=== PATIENT | female | born 1960 | race Caucasian/White ===

== ENCOUNTER → 2019-03-30 | Outpatient (CLI) | payer OTHER ==
[~2019-03-30] MED LIST: ALBU90OI; ALBU90OI INH; ATOR40TA PO; Aspir 8181 MG PO; ESCI20 PO; GUAI600T33 PO; Humulin N100 UNIT/1 SC; LEVO750 PO; Lisinopril2.5 MG; Lisinopril2.5 MG PO; TRAZ100 PO; VSL; Ventolin/Prove6.7 GM INH
== END | disposition home or self-care (01) ==
LOC: LAB SHORT 12:39 → PLD 12:39
DX: C44.311 Basal cell carcinoma of skin of nose (principal)
CPT/HCPCS: 88305

== ENCOUNTER → 2019-12-25 | Outpatient (CLI) | payer OTHER | LOC: LAB SHORT 15:49 → LAB 15:49 | DX: N39.0 Urinary tract infection, site not specified (principal) | CPT/HCPCS: 87077; 87086; 87186 ==

== ENCOUNTER 2020-03-08 19:06 | Observation (INO) | payer OTHER ==
[~2020-03-08] VITALS: Ht 175.3 cm; Wt 132.4 kg
[~2020-03-08 19:06] MED LIST changes: -Lisinopril2.5 MG
[2020-03-08 19:59] LABS: Source, Urine Clean Catch
[2020-03-08 20:05] LABS: Appearance, Urine Clear (Clear); Bilirubin, Urine Neg (Neg); Blood, Urine Neg (Neg); Color, Urine Yellow (P-Yellow); Glucose Qualitative, Urine Neg (Neg); Ketones, Urine Neg (Neg); Leukocyte Esterase, Urine Neg (Neg); Nitrite, Urine Neg (Neg); Protein, Urine Neg (Neg); Urobilinogen, Urine NORM (Normal)
[2020-03-08] MEDS ORDERED: SALM50IP INH (20:06)
[2020-03-08] MEDS ORDERED: HUMULIN N100 UNIT/6 SC (20:07)
[2020-03-08] MEDS ORDERED: MONT10T PO (20:07)
[2020-03-08] MEDS ORDERED: ATORVASTATIN CA40 M1 PO (20:08)
[2020-03-08 20:28] LABS: U Amphetamine Screen Not Detected; U Barbituate Screen Not Detected; U Benzodiazapine Screen Not Detected; U Buprenorphine Screen Not Detected; U Cannabinoids Screen Not Detected; U Cocaine Screen Not Detected; U Methadone Screen Not Detected; U Methamphetamine Screen Not Detected; U Opiates Screen Not Detected; U Oxycodone Screen Not Detected; U Phencyclidine Screen Not Detected; U Propoxyphene Screen Not Detected
[2020-03-08 20:37] LABS: BASOPHILS ABSOLUTE AUTO 0.11 K/mm3 (0.00-0.23); BASOPHILS PERCENT AUTO 1 % (0-2); EOSINOPHILS ABSOLUTE AUTO 0.65 K/mm3 (0.00-0.68); EOSINOPHILS PERCENT AUTO 6 % (0-6); Hematocrit 44.1 % (33.0-51.0); Hemoglobin 14.6 g/dL (11.5-16.0); IMMATURE GRAN ABSOLUTE AUTO 0.07 K/mm3 (0.00-0.10); IMMATURE GRAN PERCENT AUTO 1 % (0-1); LYMPHOCYTES ABSOLUTE AUTO 3.48 K/mm3 (0.84-5.20); LYMPHOCYTES PERCENT AUTO 30 % (21-46); MONOCYTES ABSOLUTE AUTO 0.79 K/mm3 (0.16-1.47); MONOCYTES PERCENT AUTO 7 % (4-13); Mean Corpuscular HGB 31.7 pg (26.0-34.0); Mean Corpuscular HGB Conc 33.1 g/dL (31.5-36.5); Mean Corpuscular Volume 96 fL (80-100); Mean Platelet Volume 9.9 fL (9.1-12.4); NEUTROPHILS ABSOLUTE AUTO 6.56 K/mm3 (1.96-9.15); NEUTROPHILS PERCENT AUTO 56 % (41-73); Platelet Count 344 K/mm3 (150-400); RDW Coefficient Variation 12.5 % (11.7-14.2); RDW Standard Deviation 44.1 fL (35.1-46.3); Red Blood Cell Count 4.61 M/mm3 (3.80-5.20); White Blood Cell Count 11.66 K/mm3 (4.00-11.30)
[2020-03-08 21:00] LABS: Alanine Aminotransfer (ALT/SGP 33 U/L (12-78); Albumin, Blood 3.5 g/dL (3.4-5.0); Albumin/Globulin Ratio 0.8 (0.8-1.8); Alk Phos 76 U/L (50-136); Anion Gap 10 mmol/L (6-16); Aspartate Aminotrans (AST/SGOT 19 U/L (12-37); Bilirubin, Total 0.2 mg/dL (0.1-1.0); Blood Urea Nitrogen 11 mg/dL (8-24); Bun/Creatinine Ratio 17.8 (12.0-20.0); CO2, Blood 21 mmol/L (21-32); Calcium, Blood 9.3 mg/dL (8.5-10.1); Chloride, Blood 105 mmol/L (98-108); Creatinine, Blood 0.62 mg/dL (0.40-1.00); Ethanol (Alcohol), Blood, Med 66 mg/dL; Globulin, Blood 4.3 g/dL (2.2-4.0); Glomerular Filtration Rate >60 (60-); Glucose, Blood 222 mg/dL (70-99); Potassium, Blood 3.5 mmol/L (3.5-5.5); Salicylate 2.3 mg/dL (2.8-20.0); Sodium, Blood 136 mmol/L (136-145); Total Protein, Blood 7.8 g/dL (6.4-8.2)
[2020-03-08 21:04] LABS: Acetaminophen, Random <2.0 ug/mL (10.0-30.0)
[2020-03-09] MEDS ORDERED: BASAGLAR K100 UNIT/1 SC (08:07)
== END 2020-03-09 09:25 | disposition home or self-care (01) ==
LOC: ER 19:06 → EOR 19:07
PROVIDERS: Physician Assistant; ADMIT Emergency Medicine
DX: F32.9 Major depressive disorder, single episode, unspecified (principal); R45.851 Suicidal ideations; F41.9 Anxiety disorder, unspecified; I25.10 Atherosclerotic heart disease of native coronary artery without angina pectoris; I25.2 Old myocardial infarction; E11.9 Type 2 diabetes mellitus without complications; J45.20 Mild intermittent asthma, uncomplicated; I10 Essential (primary) hypertension; G47.33 Obstructive sleep apnea (adult) (pediatric); E78.5 Hyperlipidemia, unspecified; G47.00 Insomnia, unspecified; Z88.1 Allergy status to other antibiotic agents; Z88.2 Allergy status to sulfonamides; Z79.51 Long term (current) use of inhaled steroids; Z79.4 Long term (current) use of insulin; Z79.899 Other long term (current) drug therapy; Z95.5 Presence of coronary angioplasty implant and graft; Z93.3 Colostomy status; Z87.891 Personal history of nicotine dependence
CPT/HCPCS: 36415; 80053; 81003; 81025; 82947; 85025; 93005; 93010; 99285-25; G0378; G0480; J1815

== ENCOUNTER 2020-08-09 09:02 | Emergency (ER) | payer OTHER ==
[~2020-08-09] VITALS: Ht 175.3 cm; Wt 127.0 kg
[~2020-08-09 09:02] MED LIST changes: +ATORVASTATIN CA40 M1 PO; +BASAGLAR K100 UNIT/1 SC; +HUMULIN N100 UNIT/6 SC; +MONT10T PO; +SALM50IP INH
[2020-08-09] MEDS ORDERED: OXYC5 PO (11:44)
[2020-08-11] MEDS ORDERED: Norco 5-325 Ta1 EACH PO (09:49)
== END 2020-08-09 12:25 | disposition home or self-care (01) ==
LOC: ER 09:02
DX: M54.2 Cervicalgia (principal); I25.10 Atherosclerotic heart disease of native coronary artery without angina pectoris; I25.2 Old myocardial infarction; E11.9 Type 2 diabetes mellitus without complications; E78.5 Hyperlipidemia, unspecified; Z87.891 Personal history of nicotine dependence
CPT/HCPCS: 72125; 96372; 99283-25; J1885

== ENCOUNTER 2021-02-17 14:43 | Observation (INO) | payer OTHER ==
[~2021-02-17] VITALS: Ht 177.8 cm; Wt 127.0 kg
[~2021-02-17 14:43] MED LIST changes: +Norco 5-325 Ta1 EACH PO; +OXYC5 PO
[2021-02-17 15:52] LABS: BASOPHILS ABSOLUTE AUTO 0.14 K/mm3 (0.00-0.23); BASOPHILS PERCENT AUTO 1 % (0-2); EOSINOPHILS ABSOLUTE AUTO 0.37 K/mm3 (0.00-0.68); EOSINOPHILS PERCENT AUTO 3 % (0-6); Hematocrit 46.4 % (33.0-51.0); Hemoglobin 15.5 g/dL (11.5-16.0); IMMATURE GRAN ABSOLUTE AUTO 0.07 K/mm3 (0.00-0.10); IMMATURE GRAN PERCENT AUTO 1 % (0-1); LYMPHOCYTES ABSOLUTE AUTO 3.87 K/mm3 (0.84-5.20); LYMPHOCYTES PERCENT AUTO 28 % (21-46); MONOCYTES ABSOLUTE AUTO 0.84 K/mm3 (0.16-1.47); MONOCYTES PERCENT AUTO 6 % (4-13); Mean Corpuscular HGB 31.8 pg (26.0-34.0); Mean Corpuscular HGB Conc 33.4 g/dL (31.5-36.5); Mean Corpuscular Volume 95 fL (80-100); Mean Platelet Volume 9.6 fL (9.1-12.4); NEUTROPHILS ABSOLUTE AUTO 8.77 K/mm3 (1.96-9.15); NEUTROPHILS PERCENT AUTO 62 % (41-73); Platelet Count 400 K/mm3 (150-400); RDW Coefficient Variation 13.1 % (11.7-14.2); RDW Standard Deviation 46.3 fL (35.1-46.3); Red Blood Cell Count 4.88 M/mm3 (3.80-5.20); White Blood Cell Count 14.06 K/mm3 (4.00-11.30)
[2021-02-17 16:21] LABS: Influenza A, PCR NEGATIVE (NEGATIVE); Influenza B, PCR NEGATIVE (NEGATIVE); Resp Syncytial Virus, PCR NEGATIVE (NEGATIVE); SARS-Cov-2 (COVID-19) PCR, MMC NEGATIVE (NEGATIVE)
[2021-02-17 16:24] LABS: Alanine Aminotransfer (ALT/SGP 33 U/L (12-78); Albumin, Blood 3.8 g/dL (3.4-5.0); Alk Phos 76 U/L (50-136); Anion Gap 6 mmol/L (6-16); Aspartate Aminotrans (AST/SGOT 18 U/L (12-37); Bilirubin, Total 0.3 mg/dL (0.1-1.0); Blood Urea Nitrogen 11 mg/dL (8-24); Bun/Creatinine Ratio 15.7 (12.0-20.0); CO2, Blood 28 mmol/L (21-32); Calcium, Blood 9.6 mg/dL (8.5-10.1); Chloride, Blood 106 mmol/L (98-108); Ethanol (Alcohol), Blood, Med 3 mg/dL; Globulin, Blood 3.8 g/dL (2.2-4.0); Glomerular Filtration Rate >60 (60-); Glucose, Blood 91 mg/dL (70-99); Potassium, Blood 3.9 mmol/L (3.5-5.5); Salicylate 3.6 mg/dL (2.8-20.0); Sodium, Blood 140 mmol/L (136-145); Total Protein, Blood 7.6 g/dL (6.4-8.2)
[2021-02-17 16:28] LABS: Acetaminophen, Random <2.0 ug/mL (10.0-30.0)
[2021-02-17 17:09] LABS: Source, Urine Clean Catch
[2021-02-17 17:34] LABS: U Amphetamine Screen Not Detected; U Barbituate Screen Not Detected; U Benzodiazapine Screen Not Detected; U Buprenorphine Screen Not Detected; U Cannabinoids Screen DETECTED; U Cocaine Screen Not Detected; U Methadone Screen Not Detected; U Methamphetamine Screen Not Detected; U Opiates Screen Not Detected; U Oxycodone Screen Not Detected; U Phencyclidine Screen Not Detected; U Propoxyphene Screen Not Detected
[2021-02-17 17:40] LABS: Appearance, Urine Clear (Clear); Blood, Urine 2+ (Neg); Color, Urine Yellow (P-Yellow); Glucose Qualitative, Urine Neg (Neg); Ketones, Urine Neg (Neg); Leukocyte Esterase, Urine 1+ (Neg); Nitrite, Urine Pos (Neg); Protein, Urine 2+ (Neg); Urobilinogen, Urine 4+ (Normal)
[2021-02-17 17:58] LABS: Bacteria Few /hpf; Mucus Light (0-Heavy); Squamous Epithelial Cells Few /hpf (Few); Trichomonas Few /hpf
[2021-02-17] MEDS ORDERED: TRULICITY0.75 MG/01 (18:23)
[2021-02-17] MEDS ORDERED: NEURONTIN300 MG PO ×2 (18:23→18:25)
[2021-02-17] MEDS ORDERED: ESCI20 (18:24)
[2021-02-17] MEDS ORDERED: CYCL10 PO (18:24)
[2021-02-17] MEDS ORDERED: ASPI81CH PO (18:28)
[2021-02-17 19:10] LABS: Bilirubin, Urine 2+ (Neg)
[2021-02-18] MEDS ORDERED: CLON.5 PO (12:18)
== END 2021-02-18 15:07 | disposition home or self-care (01) ==
LOC: ER 14:43 → EOR 14:44
PROVIDERS: Physician Assistant; ADMIT Emergency Medicine
DX: F32.2 Major depressive disorder, single episode, severe without psychotic features (principal); I25.10 Atherosclerotic heart disease of native coronary artery without angina pectoris; I25.2 Old myocardial infarction; E11.9 Type 2 diabetes mellitus without complications; J45.20 Mild intermittent asthma, uncomplicated; I10 Essential (primary) hypertension; G47.33 Obstructive sleep apnea (adult) (pediatric); E78.5 Hyperlipidemia, unspecified; Z79.4 Long term (current) use of insulin; Z95.5 Presence of coronary angioplasty implant and graft; Z88.2 Allergy status to sulfonamides; Z20.822 Contact with and (suspected) exposure to COVID-19; Z87.891 Personal history of nicotine dependence; Z91.51 Personal history of suicidal behavior
CPT/HCPCS: 0241U; 80053; 81001; 81025; 82947; 85025; 87086; 99285; A9270; G0378; G0480; J1815; Q3014

== ENCOUNTER 2022-07-10 09:19 | Day surgery (SDC) | payer OTHER, MEDICARE ==
[2022-07-10] VITALS (27 sets, daily range): BP systolic 95–167; BP diastolic 49–106
[~2022-07-10] VITALS: Ht 177.8 cm; Wt 135.2 kg
[~2022-07-10 09:19] MED LIST changes: +ASPI81CH PO; +CLON.5 PO; +CYCL10 PO; +NEURONTIN300 MG PO; +NOVOLIN N100 UNIT/2 SC; +TRULICITY0.75 MG/01 SC
--- NOTE | 2022-07-10 10:38 | NUR ---
Ambulatory in Day Surgery History, Chart, Medications and Allergies reviewed before start of procedure.Patient confirms NPO status and agrees with scheduled surgery. Pre-Op teaching done. Pt verbalizes understanding.
[2022-07-10] MEDS ORDERED: Ventolin5 MG/1 ML INH (10:50)
[2022-07-10] MEDS ORDERED: ALPR1 PO (10:51)
[2022-07-10] MEDS ORDERED: LORA1 PO (10:53)
--- NOTE | 2022-07-10 18:24 | NUR ---
END OF SHIFT: PATIENT HAS BEEN ADMITTED TO PCU DUE TO DICCICULTY WITH ANESTHESIA AND RECOVERY. PATIENT IS CURRENTLY ON 3L BLEED IN ON CPAP, AND SPO2>92% ACTIVE SIGNS OF SLEEP APNEA, AND PATIENT TOLERATING CPAP BETTER THAN 15L NRB. PATIENT WITH POLAR KNEE BRACE IN PLACE AND SCD'S DUE TO INCREASED RISK OF CLOT. PATIENT OCCASSIONALLY WILL WAKE UP DISORIENTED. CAMERA ON FOR FALL RISK AND SAFETY. SB TO SR. NO SIGNS OF CHEST PAIN 22 GUAGE RFA INFUSING TO GRAVITY LR SLOWLY. PATIENT BLOOD SUGAR CHECKED, WILL CALL SURGEON TO GET ORDER FOR HOSPITALIST TO ORDER BASIC NEEDS. PATIENT CURRENLTY LOOKS PAIN FREE PULSES DISTAL TO SURGICAL SITE INTACT. BED ALARM ON, WILL CONITINUE TO MONITOR UNTIL SHIFT CHANGE.
[2022-07-11 00:52] VITALS: BP 104/64
[2022-07-11 03:57] LABS: BASOPHILS ABSOLUTE AUTO 0.02 K/mm3 (0.00-0.23); BASOPHILS PERCENT AUTO 0 % (0-2); EOSINOPHILS ABSOLUTE AUTO 0.01 K/mm3 (0.00-0.68); EOSINOPHILS PERCENT AUTO 0 % (0-6); Hematocrit 33.4 % (33.0-51.0); Hemoglobin 10.9 g/dL (11.5-16.0); IMMATURE GRAN ABSOLUTE AUTO 0.09 K/mm3 (0.00-0.10); IMMATURE GRAN PERCENT AUTO 1 % (0-1); LYMPHOCYTES ABSOLUTE AUTO 1.55 K/mm3 (0.84-5.20); LYMPHOCYTES PERCENT AUTO 11 % (21-46); MONOCYTES ABSOLUTE AUTO 0.82 K/mm3 (0.16-1.47); MONOCYTES PERCENT AUTO 6 % (4-13); Mean Corpuscular HGB Conc 32.6 g/dL (31.5-36.5); Mean Corpuscular Volume 98 fL (80-100); Mean Platelet Volume 9.7 fL (9.1-12.4); NEUTROPHILS ABSOLUTE AUTO 11.47 K/mm3 (1.96-9.15); NEUTROPHILS PERCENT AUTO 82 % (41-73); Platelet Count 277 K/mm3 (150-400); RDW Coefficient Variation 14.2 % (11.7-14.2); RDW Standard Deviation 51.3 fL (35.1-46.3); Red Blood Cell Count 3.41 M/mm3 (3.80-5.20); White Blood Cell Count 13.96 K/mm3 (4.00-11.30)
[2022-07-11 04:18] LABS: Bun/Creatinine Ratio 27.4 (12.0-20.0); Calcium, Blood 8.3 mg/dL (8.5-10.1); Creatinine, Blood 0.77 mg/dL (0.40-1.00); Potassium, Blood 4.5 mmol/L (3.5-5.5)
[2022-07-11 04:38] VITALS: BP 110/60
--- NOTE | 2022-07-11 04:53 | NUR ---
SHIFT SUMMARY A/OX4, 1P ASSIST WITH FWW TO BATHROOM. POD #1 LEFT TKA. AQUACEL, TORSTEN WRAP AND POLAR INOCENCIA IN PLACE. TELE SR IN THE 80S. SPO2 >92 % ON HOME CPAP WITH 3L BLEED IN. VSS, NO ACUTE CHANGES AT THIS TIME. BED IN LOWEST POSTIION WITH CALL LIGHT IN REACH. WILL CONTINUE TO MONITOR AND REPORT TO ONCOMING RN.
[2022-07-11 07:11] VITALS: BP 140/53
[2022-07-11] MEDS ORDERED: ASPI81CH PO (10:05)
--- NOTE | 2022-07-11 10:16 | NUR ---
PT A&OX4, PLEASANT AND COOPERATIVE WITH CARE. PT LUNG SOUNDS CLEAR, BUT DIMINISHED IN BASES. HR SR 60'S. PT UP W/NURSE ASSIST AND WALKER TO RESTROOM SEVERAL TIMES THIS MORNING. BILATERAL SEQUENTIAL DEVICES IN PLACE. AQUACEL, TORSTEN BANDAGE, AND CONTINUOUS COOLING DEVISE AROUND SURGICAL SITE OF L KNEE. DRESSINGS C/D/I. PULSES PRESENT ALL 4 EXTREMITIES. PT'S PAIN LEVEL WAS 5 WITH AN ACCEPTABLE LEVEL OF 4, MEDICATED PER MAR. PAIN CAME DOWN TO 4 WHEN RE-ASSESSED. PT MEDICATED BEFORE PT. PT JUST FINISHED WITH PT. UP IN EVY UNTIL D/C PER PT. PT EATING BREAKFAST AND WATCHING TV. CALL LIGHT WITHIN REACH.
[2022-07-11 11:15] VITALS: BP 107/58
--- NOTE | 2022-07-11 12:23 | NUR ---
NO ACUTE CHANGES, SEE PREVIOUS NOTE. AFTER PHYSICAL THERAPY PT COMPLAINED OF 5/10 PAIN AGAIN. GAVE ANOTHER HALF OF NORCO AND TORADOL FOR PAIN, BROUGHT PAIN DOWN TO 4/10 PAIN. DISCHARGE INSTRUCTIONS WENT OVER WITH PT, ALL QUESTIONS SHE HAD WERE ANSWERED. PTS CAME TO PICK HER UP. SHE LEFT WITH ALL OF HER BELONGINGS, D/C PACKET, AND CONTINUOUS COOLING DEVICE. WHEELED OUT TO HER CAR IN WHEELCHAIR BY AID.
--- NOTE | 2022-07-11 13:11 | NUR ---
THIS RN HAS REVIEWED ALL STUDENT NURSING DOCUMENTATION. PATIENT ALSO GIVEN WRITTEN SCRIPTS FOR ASPIRIN AND NORCO. SEE COPIES IN CHART.
== END 2022-07-11 12:20 | disposition home or self-care (01) ==
LOC: ORSCMMR 09:19 → ORD 10:00 → ORSCMMR 12:30 → PCU 16:04 → ORSCMMR 22:42 → PCU 22:42 → ORSCMMR 07-11 12:20
PROVIDERS: Orthopaedic Surgery
PROC: 0SRD0JA Replacement of Left Knee Joint with Synthetic Substitute, Uncemented, Open Approach (ICD-10-PCS; principal; 2022-07-10 10:00)
PROC: 8E0Y0CZ Robotic Assisted Procedure of Lower Extremity, Open Approach (ICD-10-PCS; principal; 2022-07-10 10:00)
DX: M17.12 Unilateral primary osteoarthritis, left knee (principal); E66.01 Morbid (severe) obesity due to excess calories; Z68.41 Body mass index [BMI] 40.0-44.9, adult; E11.9 Type 2 diabetes mellitus without complications; E78.5 Hyperlipidemia, unspecified; I10 Essential (primary) hypertension; J45.909 Unspecified asthma, uncomplicated; I25.2 Old myocardial infarction; F41.8 Other specified anxiety disorders; Z79.84 Long term (current) use of oral hypoglycemic drugs; Z79.4 Long term (current) use of insulin; Z79.899 Other long term (current) drug therapy
CPT/HCPCS: 27447; 20985; S2900; 36415; 73560-LT; 80048; 82947; 85025; 94660; 94762; 97110; 97116; 97162; 97530; A9270; C1776; J0171; J0690; J0735; J1100; J1170; J1815; J1885; J2060; J2250; J2405; J2704; J2795; J3010; J3370; J7120

== ENCOUNTER 2022-09-17 07:02 | Observation (INO) | payer OTHER, MEDICARE ==
[~2022-09-17] VITALS: Ht 177.8 cm; Wt 132.2 kg
[~2022-09-17 07:02] MED LIST changes: +ALPR1 PO; +LORA1 PO; +Ventolin5 MG/1 ML INH
[2022-09-17 09:06] LABS: BASOPHILS PERCENT AUTO 1 % (0-2); EOSINOPHILS PERCENT AUTO 3 % (0-6); Hematocrit 40.4 % (33.0-51.0); Hemoglobin 13.6 g/dL (11.5-16.0); IMMATURE GRAN ABSOLUTE AUTO 0.06 K/mm3 (0.00-0.10); IMMATURE GRAN PERCENT AUTO 1 % (0-1); LYMPHOCYTES ABSOLUTE AUTO 2.38 K/mm3 (0.84-5.20); LYMPHOCYTES PERCENT AUTO 23 % (21-46); MONOCYTES ABSOLUTE AUTO 0.73 K/mm3 (0.16-1.47); MONOCYTES PERCENT AUTO 7 % (4-13); Mean Corpuscular HGB 32.2 pg (26.0-34.0); Mean Corpuscular HGB Conc 33.7 g/dL (31.5-36.5); Mean Corpuscular Volume 96 fL (80-100); Mean Platelet Volume 9.6 fL (9.1-12.4); NEUTROPHILS ABSOLUTE AUTO 6.81 K/mm3 (1.96-9.15); NEUTROPHILS PERCENT AUTO 66 % (41-73); Platelet Count 364 K/mm3 (150-400); RDW Coefficient Variation 13.4 % (11.7-14.2); RDW Standard Deviation 47.4 fL (35.1-46.3); Red Blood Cell Count 4.23 M/mm3 (3.80-5.20); White Blood Cell Count 10.38 K/mm3 (4.00-11.30)
[2022-09-17 10:43] LABS: Albumin, Blood 3.5 g/dL (3.4-5.0); Albumin/Globulin Ratio 0.9 (0.8-1.8); Bilirubin, Total 0.2 mg/dL (0.1-1.0); Calcium, Blood 9.3 mg/dL (8.5-10.1); Creatinine, Blood 0.86 mg/dL (0.40-1.00); Globulin, Blood 3.9 g/dL (2.2-4.0); Potassium, Blood 4.4 mmol/L (3.5-5.5); Total Protein, Blood 7.4 g/dL (6.4-8.2)
[2022-09-17 12:23] LABS: CHOL/HDL RATIO 4.9; Cholesterol 192 mg/dL (50-200); HDL Cholesterol 39 mg/dL (>39); LDL/HDL RATIO 3.2; Low Density Lipoprotein Chol 126 mg/dL (0-110); Triglycerides 134 mg/dL (30-160); Very Low Density Lipoprot Chol 26 mg/dL (6-32)
[2022-09-17 14:16] VITALS: BP 146/73
[2022-09-17 15:30] VITALS: BP 137/62
--- NOTE | 2022-09-17 16:27 | NUR ---
SHIFT SUMMARY PT ARRIVED TO THE FLOOR FROM THE ER VIA JACKIE, DENIES CP AT TIME OF ARRIVAL, SETTED IN HER BED AND ORIENTED TO HER ROOM, ADMISSION COMPLETED. PT REPORTED ONE EPISODE OF CP AND WAS GIVEN ONE DOSE OF NITRO WHICH PROVIDED RELIEF (SEE EMAR), NO OTHER EVENTS THIS SHIFT, CALL LIGHT IN REACH.
--- NOTE | 2022-09-17 19:17 | NUR ---
NIRSE NOTE RECEIVED TEACHING RE FIRE IGNITION RE NOSMOKING WHILE ON O2 AND NO SMOKING IN HOSPITAL. CALL LIGHT IN REACH. LAYING DOWN. CONT PUSE OX IN USE - 90'S. WILL BE NPO AT MIDNIGHT FOR STRESS TEST IN THE AM.
[2022-09-17 19:41] VITALS: BP 161/79
[2022-09-17 20:05] VITALS: BP 151/81
--- NOTE | 2022-09-17 20:25 | NUR ---
NURSE NOTE VOICED CP 4 OUT OF 10. NITRO SL ADMIN, DROPPED TO 3:10, THEN CP CONTINUED. ANOTHER DOSE OF NITRO SL ADMIN. CP REMAINED. BECAME NAUSEATED. CHARGE NURSE NOTIFIED. CALL PLACED TO . NEFTALI ORDERED. REVIEWED CHART. STATED NEGATIVE TROPS X 3. ORDERED MS IV IF PT NOT ALLERGIVE TO IT. SEE MAR FOR DETAILS
--- NOTE | 2022-09-17 21:28 | NUR ---
RESTING QUIETLY. CPAP IN USE. O2 SATS >90%. NO C/O CP. NO S/S ACUTE DISTRES. CALL LIGHT IN REACH. WILL CONTINUE TO MONITOR. WILL BE NPO AFTER 0000.
[2022-09-18] VITALS (10 sets, daily range): BP systolic 107–155; BP diastolic 54–87
--- NOTE | 2022-09-18 04:13 | NUR ---
BUSINESS STRATEGY MANAGER SUMMARY VSS. AT SHIFT COMMENCE VOICED CHEST PAIN/PRESSURE. RECEIVED NITRO SL X 2 (SEE MAR FOR DETAILS). BP ELEVATED, AND VOICED NAUSEA. MD NOTIFIED, NEFTALI ORDERED, MED EFFECTIVE. VITAL SIGNS MONITORED, BP TRENDED DOWN AND HAS BEEN RESTING QUIETLY WITHOUT NOTED S/S DISTRESS SINCE. HAS BEEN NPO SINCE MIDNIGHT FOR STRESS TEST SCHEDULED LATER TODAY. CALL LIGHT IN REACH. WILL CONTINUE TO MONITOR. O2 SATS 90'S.
--- NOTE | 2022-09-18 07:10 | NUR ---
PATIENT EDUCATION: VERBALIZED UNDERSTANDING OF EDUCATION ABOUT OXYGEN USE IN THE HOSPITAL, FLAMMABILITY OF OXYGEN, AND RISK OF FIRE AND INJURY R/T OXYGEN USE. PATIENT IS A NON SMOKER, DOES NOT HAVE ANY INCENDIARY DEVICES (MARKETING SALES SUPERVISOR, MATCHES, ETC) IN HER POSSESSION.
--- NOTE | 2022-09-18 14:25 | NUR ---
PATIENT OFF UNIT TO STABLE MANAGER VIA W/C. SPOUSE TOOK ALL BELONGINGS.
--- NOTE | 2022-09-18 15:25 | NUR ---
PATIENT TO BE TRANSFERRED TO PCU 18 AFTER ANGIOGRAM, REPORT GIVEN TO Helen ANTONIO RN.
--- NOTE | 2022-09-18 16:32 | NUR ---
PT WITH TR BAND TO RT WRIST, FULL ROM OF FINGERS, SKIN PWD, NO ACTIVE BLEEDING NOTED. TR BAND RECOVERY IN PROGRESS
--- NOTE | 2022-09-18 17:13 | NUR ---
CONTINUING TO RECOVER TR BAND. PT EATING DINNER IN BED THAT OBTAINED HER, PT UPDSET ABOUT THE LENGTH OF TIME THAT IT HAS TAKEN TO RECIEVE DINNER TRAY PT EXPRESSES THAT SHE NEEDS TO KNOW IF SHE IS GOING TO BE CHARGED FOR DINNER TRAY AND STS THAT SHE WILL REVIEW HER BILL TO ENSURE SHE IS NOT CHARGED. NO ACTIVE BLEEDING FROM TR BAND SITE. VSS. PT EDUCATED ABOUT FIRE SAFETY SHE AGREES NOT TO SMOKE OR USE ANY IGNITION SOURCE. WILL CONTINUE TO RECOVER TR BAND.
--- NOTE | 2022-09-18 18:26 | NUR ---
AIR REMOVED FROM TR BAND AT 1810, WILL REMOVED TR BAND AND DRESS SITE IN 45 MINUTES
--- NOTE | 2022-09-18 18:33 | NUR ---
PT EDUCATED ON NOT SMOKING IN HOSPITAL AND FIRE SAFETY
[2022-09-19 00:30] VITALS: BP 113/79
[2022-09-19 02:10] LABS: BASOPHILS PERCENT AUTO 1 % (0-2); EOSINOPHILS ABSOLUTE AUTO 0.41 K/mm3 (0.00-0.68); EOSINOPHILS PERCENT AUTO 4 % (0-6); Hematocrit 38.9 % (33.0-51.0); Hemoglobin 12.8 g/dL (11.5-16.0); IMMATURE GRAN ABSOLUTE AUTO 0.05 K/mm3 (0.00-0.10); IMMATURE GRAN PERCENT AUTO 1 % (0-1); LYMPHOCYTES ABSOLUTE AUTO 3.17 K/mm3 (0.84-5.20); LYMPHOCYTES PERCENT AUTO 34 % (21-46); MONOCYTES ABSOLUTE AUTO 0.74 K/mm3 (0.16-1.47); MONOCYTES PERCENT AUTO 8 % (4-13); Mean Corpuscular HGB 31.4 pg (26.0-34.0); Mean Corpuscular HGB Conc 32.9 g/dL (31.5-36.5); Mean Corpuscular Volume 95 fL (80-100); Mean Platelet Volume 9.3 fL (9.1-12.4); NEUTROPHILS ABSOLUTE AUTO 4.93 K/mm3 (1.96-9.15); NEUTROPHILS PERCENT AUTO 52 % (41-73); Platelet Count 346 K/mm3 (150-400); RDW Coefficient Variation 13.2 % (11.7-14.2); RDW Standard Deviation 46.4 fL (35.1-46.3); Red Blood Cell Count 4.08 M/mm3 (3.80-5.20)
[2022-09-19 02:53] LABS: Bun/Creatinine Ratio 20.2 (12.0-20.0); Calcium, Blood 8.6 mg/dL (8.5-10.1); Creatinine, Blood 0.69 mg/dL (0.40-1.00); Potassium, Blood 4.5 mmol/L (3.5-5.5)
[2022-09-19 05:09] VITALS: BP 124/83
--- NOTE | 2022-09-19 05:10 | NUR ---
SHIFT SUMMARY A/OX4, SBA WITH FWW D/T RECENT L. KNEE REPLACEMENT. SPO2 >92% ON CPAP WITH 2L BLEED IN. TELE SB 50S, DENIES CHEST PAIN/PRESSURE. TEGADERM/ARM BOARD TO R. RADIAL SITE WITH NO SIGNS OF HEMATOMA OR OOZING. VSS, NO ACUTE CHANGES AT THIS TIME. BED IN LOWEST POSITION WITH CALL LIGHT IN REACH. WILL CONTINUE TO MONITOR AND REPORT TO ONCOMING RN. PT & FAMILY EDUCATED RE: IGNITION SOURCES & RISK OF INJURY WHILE OXYGEN IS IN USE. PT DENIES SMOKING AND PT & FAMILY VERBALIZE UNDERSTANDING.
[2022-09-19 07:46] VITALS: BP 152/75
--- NOTE | 2022-09-19 10:15 | NUR ---
PT UPDATE PT C/O OF ANXIETY. PT STATES FEELING ANXIOUS ABOUT GOING HOME. PT STATES "NOT EMOTIONALLY AVAILABLE" AND "DOESNT FEEL SUPPORTED". PT DOES STATE SHE FEELS SAFE GOING HOME, JUST ANXIOUS. PT TALKING TO SON ON PHONE THIS AM. PT STATED, "IM GOING TO ORDER HIM () DOORDASH SO HE WONT COMPLAIN ABOUT DISHES." CALL PLACED TO MD GOINS. MD GOINS WITH ONE TIME ORDER FOR PO ATIVAN.
--- NOTE | 2022-09-19 10:26 | NUR ---
PT UPDATED ON FIRE IGNITION PREVENTION AND THE USE OF OXYGEN.
[2022-09-19 11:33] VITALS: BP 137/71
[2022-09-19] MEDS ORDERED: NITR.4SL SL (15:38)
== END 2022-09-19 16:15 | disposition home or self-care (01) ==
LOC: ER 07:02 → MEDS 07:03 → PCU 07:03 → MEDS 07:03 → PCU 09-18 14:14
PROVIDERS: Emergency Medicine; Hospitalist; ADMIT Family Medicine
DX: I25.10 Atherosclerotic heart disease of native coronary artery without angina pectoris (principal); I25.2 Old myocardial infarction; J45.20 Mild intermittent asthma, uncomplicated; I10 Essential (primary) hypertension; E66.01 Morbid (severe) obesity due to excess calories; R00.1 Bradycardia, unspecified; G47.33 Obstructive sleep apnea (adult) (pediatric); Z88.5 Allergy status to narcotic agent; Z88.2 Allergy status to sulfonamides; Z88.8 Allergy status to other drugs, medicaments and biological substances
CPT/HCPCS: 36415; 71046; 71260; 76937; 80048; 80053; 80061; 82947; 83880; 84443; 84484; 85025; 85379; 93005; 93010; 93458; 94660; 94762; 96372; 96374; 99152; 99153; 99285-25; A9270; C1769; C1887; C1894; G0378; J1644; J1650; J1815; J2250; J2405; J3010; J7030; J7050; Q9967

== ENCOUNTER → 2022-11-27 | Outpatient (CLI) | payer OTHER, MEDICARE ==
[~2022-11-27] MED LIST changes: +NITR.4SL SL
== END | disposition home or self-care (01) ==
LOC: LAB 10:05 → LAB SHORT 10:05
DX: N39.0 Urinary tract infection, site not specified (principal)
CPT/HCPCS: 87077; 87086; 87186

== ENCOUNTER → 2022-12-26 | Outpatient (CLI) | payer OTHER, MEDICARE | LOC: LAB 09:30 → LAB SHORT 09:30 | DX: N39.0 Urinary tract infection, site not specified (principal) | CPT/HCPCS: 87086 ==

== ENCOUNTER → 2023-01-10 | Outpatient (CLI) | payer OTHER, MEDICARE | END | disposition home or self-care (01) | LOC: LAB 13:00 → LAB SHORT 13:00 → LAB FUT 01-10 07:15 | DX: R82.90 Unspecified abnormal findings in urine (principal) | CPT/HCPCS: 87077; 87086; 87186 ==

== ENCOUNTER → 2023-04-11 | Outpatient (CLI) | payer OTHER, MEDICARE | LOC: LAB 11:13 → LAB SHORT 11:13 | DX: D48.5 Neoplasm of uncertain behavior of skin (principal) | CPT/HCPCS: 88305 ==

== ENCOUNTER 2023-08-22 09:32 | Day surgery (SDC) | payer OTHER, MEDICARE ==
[~2023-08-22] VITALS: Ht 177.8 cm; Wt 126.1 kg
[2023-08-22] VITALS (16 sets, daily range): BP systolic 80–148; BP diastolic 14–87
[~2023-08-22 09:32] MED LIST changes: +Acetaminophen 500 MG Tab PO SCH; +Chlorhexidine Mouth Care 15 ML UDC MT SCH; +Lactated Ringer's 1,000 ML IV SCH; +OZEMPIC0.25 MG/02 SC; +Ropivacaine 0.5% HCl/Pf 123.125 MG,EPINEPHrine HCL 0.25 MG,Ketorolac Tromethamine 15 MG... INFIL SCH; +Tranexamic Acid 100 ML IV SCH
[2023-08-22] MEDS ORDERED: CeFAZolin Sodium 3,000 MG in NS 100 ML IV SCH ×2 (10:00→18:00)
[2023-08-22] MEDS ORDERED: Norco 5-325 Ta1 EACH PO (10:05)
[2023-08-22] MEDS ORDERED: JARDIANCE10 MG PO (10:05)
[2023-08-22] MEDS ORDERED: FentaNYL Citrate 50 MCG/ML 2 ML Injection ONE ×3 (10:34→13:20)
[2023-08-22] MEDS ORDERED: propofoL 20 ML IV ONE ×2 (10:34→11:01)
[2023-08-22] MEDS ORDERED: DiphenhydrAMINE HCL 25 MG Cap PO PRN (10:35)
[2023-08-22] MEDS ORDERED: HYDROcodone 5-APAP 325 TAB PO PRN (10:35)
[2023-08-22] MEDS ORDERED: Midazolam HCl 1MG / ML 2ML Vial ONE (10:35)
[2023-08-22] MEDS ORDERED: HYDROmorphone HCl/Pf 1MG SYR IV PRN (10:35)
[2023-08-22] MEDS ORDERED: Bisacodyl 10 MG Supp PR PRN (10:35)
--- NOTE | 2023-08-22 10:39 | NUR ---
PT TO SDS VIA WC. PT STATES THIS IS FOR LONG DISTANCES AND IS ABLE TO STAND FOR HEIGHT/WEIGHT. History, Chart, Medications and Allergies reviewed before start of procedure. Lungs clear T/O to Auscultation. Patient confirms NPO status and agrees with scheduled surgery. Pre-Op teaching done. Pt verbalizes understanding. Surgical site prepped with 2% Chlorhexidine cloth wipe. 3MM ABRASION NOTED TO RIGHT KNEE. DR BEATTY NOTIFIED, OKAY TO PROCEED. PT REFUSAL OXYCONTIN DUE TO ALLERGY, DR BEATTY NOTIFIED. PT BELONGINGS PLACED UNDERNEATH WAVE (Wireless [employer] Vehicle [employer]) FOR SAFEKEEPING. PT SPOUSE TOOK HER CANE FOR SAFEKEEPING.
[2023-08-22] MEDS ORDERED: Promethazine HCl 25 MG Tab PO PRN (10:40)
[2023-08-22] MEDS ORDERED: Magnesium Hydroxide Conc 10 ML UDC PO PRN (10:40)
[2023-08-22] MEDS ORDERED: Ondansetron HCl 2 MG / ML 2ML Vial IV PRN (10:40)
[2023-08-22] MEDS ORDERED: Metoclopramide HCl 5MG / ML 2ML Vial IV PRN (10:40)
[2023-08-22] MEDS ORDERED: Lactated Ringer's 1,000 ML IV SCH (10:40)
[2023-08-22] MEDS ORDERED: Ropivacaine 0.5% HCl/Pf 5 MG/ML 20ML VIAL ONE (10:42)
[2023-08-22] MEDS ORDERED: Insulin Regular 100 UNIT/ML 10ML Vial SC SCH (11:30)
[2023-08-22] MEDS ORDERED: Ketorolac Tromethamine 15mg Vial IV SCH (12:00)
[2023-08-22] MEDS ORDERED: Lactated Ringer's 1,000 ML IV ONE (12:37)
[2023-08-22] MEDS ORDERED: HYDROmorphone HCl/Pf 1MG SYR ONE (13:23)
[2023-08-22] MEDS ORDERED: Ketorolac Tromethamine 30mg Vial ONE (13:51)
[2023-08-22] MEDS ORDERED: Acetaminophen 500 MG Tab PO SCH (16:00)
--- NOTE | 2023-08-22 18:10 | NUR ---
DISCHARGE PT A&OX4, VSS/RA, AMANDA PO, VOIDING, AMB FWW, PT EVAL'D, PAIN MANAGED, IV DC'D. DC INS PROVIDED. PT REP UNDERSTANDING THOSE INSTRUCTIONS INCLUDING DRESSING CHANGES WEEKLY, FU WITH SURGEON AND OUTPT PHYSICAL THERAPY. LEFT FLOOR VIA WC WITH MANAGER COST TO GO HOME WITH WITH ALL PERSONAL POSSESSIONS INCLUDING DC PACKET AND AQUACEL DRESSINGS; CONFIRMED MEDS AT [facility] AND THEY ARE READY TO PICKUP AND THEY WILL MAKE IT BEFORE CLOSE TODAY.
[2023-08-22] MEDS ORDERED: Docusate Sodium 100 MG Cap PO SCH (21:00)
[2023-08-22] MEDS ORDERED: Lisinopril 5 MG Tab PO SCH (21:00)
[2023-08-22] MEDS ORDERED: Montelukast Sodium 10 MG Tab PO SCH (21:00)
[2023-08-22] MEDS ORDERED: TraZODone HCl 50 MG Tab PO SCH (21:00)
[2023-08-22] MEDS ORDERED: Gabapentin 300 MG Cap PO SCH (21:00)
[2023-08-23] MEDS ORDERED: Empagliflozin 10 MG TAB PO SCH (09:00)
[2023-08-23] MEDS ORDERED: Aspirin 81 MG Chew PO SCH (09:00)
[2023-08-23] MEDS ORDERED: Citalopram Hydrobromide 20 MG Tab PO SCH (09:00)
== END 2023-08-22 16:45 | disposition home or self-care (01) ==
LOC: ORSCMMR 09:32 → ORD 10:30 → ORSCMMR 10:30 → SURS 13:40 → ORSCMMR 16:45
PROVIDERS: Orthopaedic Surgery
PROC: 8E0Y0CZ Robotic Assisted Procedure of Lower Extremity, Open Approach (ICD-10-PCS; principal; 2023-08-22 10:30)
PROC: 8E0YXBZ Computer Assisted Procedure of Lower Extremity (ICD-10-PCS; principal; 2023-08-22 10:30)
PROC: 0SRC0JA Replacement of Right Knee Joint with Synthetic Substitute, Uncemented, Open Approach (ICD-10-PCS; principal; 2023-08-22 10:30)
DX: M17.11 Unilateral primary osteoarthritis, right knee (principal); E11.9 Type 2 diabetes mellitus without complications; G47.33 Obstructive sleep apnea (adult) (pediatric); J45.909 Unspecified asthma, uncomplicated; E66.01 Morbid (severe) obesity due to excess calories; Z68.41 Body mass index [BMI] 40.0-44.9, adult; Z79.899 Other long term (current) drug therapy; F41.9 Anxiety disorder, unspecified; F32.A Depression, unspecified; I10 Essential (primary) hypertension; E78.5 Hyperlipidemia, unspecified; I25.2 Old myocardial infarction; Z79.84 Long term (current) use of oral hypoglycemic drugs; Z79.4 Long term (current) use of insulin
CPT/HCPCS: 73560-RT; 82947; 97110; 97116; 97162; 97530; A9270; C1713; C1776; J0171; J0690; J0735; J1170; J1885; J2250; J2704; J2795; J3010; J7120

== ENCOUNTER 2024-04-18 17:37 | Emergency (ER) | payer OTHER, MEDICARE ==
[~2024-04-18] VITALS: Ht 177.8 cm; Wt 111.1 kg
[~2024-04-18 17:37] MED LIST changes: -Acetaminophen 500 MG Tab PO SCH; -Chlorhexidine Mouth Care 15 ML UDC MT SCH; +JARDIANCE10 MG PO; -Lactated Ringer's 1,000 ML IV SCH; -Ropivacaine 0.5% HCl/Pf 123.125 MG,EPINEPHrine HCL 0.25 MG,Ketorolac Tromethamine 15 MG... INFIL SCH; -Tranexamic Acid 100 ML IV SCH
[2024-04-18 18:13] LABS: BASOPHILS PERCENT AUTO 1 % (0-2); EOSINOPHILS ABSOLUTE AUTO 0.37 K/mm3 (0.00-0.68); EOSINOPHILS PERCENT AUTO 3 % (0-6); IMMATURE GRAN ABSOLUTE AUTO 0.03 K/mm3 (0.00-0.10); IMMATURE GRAN PERCENT AUTO 0 % (0-1); LYMPHOCYTES ABSOLUTE AUTO 3.71 K/mm3 (0.84-5.20); LYMPHOCYTES PERCENT AUTO 32 % (21-46); MONOCYTES PERCENT AUTO 6 % (4-13); Mean Corpuscular HGB 31.5 pg (26.0-34.0); Mean Corpuscular HGB Conc 34.1 g/dL (31.5-36.5); Mean Corpuscular Volume 92 fL (80-100); Mean Platelet Volume 9.3 fL (9.1-12.4); NEUTROPHILS ABSOLUTE AUTO 6.72 K/mm3 (1.96-9.15); NEUTROPHILS PERCENT AUTO 58 % (41-73); Platelet Count 374 K/mm3 (150-400); RDW Coefficient Variation 13.5 % (11.7-14.2); RDW Standard Deviation 46.2 fL (35.1-46.3); Red Blood Cell Count 4.45 M/mm3 (3.80-5.20); White Blood Cell Count 11.63 K/mm3 (4.00-11.30)
[2024-04-18 18:26] LABS: Albumin, Blood 3.5 g/dL (3.4-5.0); Bilirubin, Total 0.3 mg/dL (0.1-1.0); Bun/Creatinine Ratio 23.3 (12.0-20.0); Calcium, Blood 9.2 mg/dL (8.5-10.1); Creatinine, Blood 0.69 mg/dL (0.40-1.00); Globulin, Blood 3.6 g/dL (2.2-4.0); Potassium, Blood 3.8 mmol/L (3.5-5.5); Total Protein, Blood 7.1 g/dL (6.4-8.2)
[2024-04-18] MEDS ORDERED: NS 1,000 ML IV SCH (18:35)
[2024-04-18] MEDS ORDERED: Ketorolac Tromethamine 30mg Vial IV ONE (18:35)
[2024-04-18] MEDS ORDERED: DiphenhydrAMINE HCl 50 MG/ML 1ML Vial IV ONE (18:35)
[2024-04-18] MEDS ORDERED: Metoclopramide HCl 5MG / ML 2ML Vial IV ONE (18:35)
[2024-04-18 20:00] VITALS: BP 142/86
== END 2024-04-18 21:10 | disposition home or self-care (01) ==
LOC: ER 17:37
PROVIDERS: Student in an Organized Health Care Education/Training Program
DX: R07.89 Other chest pain (principal); B34.9 Viral infection, unspecified; E11.9 Type 2 diabetes mellitus without complications; J45.909 Unspecified asthma, uncomplicated; I10 Essential (primary) hypertension; G47.33 Obstructive sleep apnea (adult) (pediatric); E66.01 Morbid (severe) obesity due to excess calories; E78.5 Hyperlipidemia, unspecified; I25.2 Old myocardial infarction; Z87.891 Personal history of nicotine dependence; Z79.82 Long term (current) use of aspirin; Z79.4 Long term (current) use of insulin; Z79.899 Other long term (current) drug therapy; Z88.5 Allergy status to narcotic agent; Z88.2 Allergy status to sulfonamides; Z88.1 Allergy status to other antibiotic agents
CPT/HCPCS: 71046; 80053; 83690; 83880; 84484; 85025; 93005; 93010; 99285-25; J1200; J1885; J2765; J7030